=== PATIENT | male | born 1965 ===

== ENCOUNTER 2019-08-06 13:20 | Emergency (ER) | payer OTHER ==
[~2019-08-06] VITALS: Ht 182.9 cm; Wt 95.3 kg
[2019-08-06] MEDS ORDERED: VASOTEC2.5 MG (14:13)
[2019-08-06] MEDS ORDERED: ATORVASTATIN CA10 MG (14:13)
== END 2019-08-06 15:51 | disposition home or self-care (01) ==
LOC: ER 13:20
DX: M25.552 Pain in left hip (principal)